=== PATIENT | male | born 1985 | race Caucasian/White ===

== ENCOUNTER 2022-10-12 14:10 | Outpatient (CLI) | payer OTHER, SELFPAY ==
[2022-10-12 20:42] LABS: Albumin* 4.4 g/dL (3.3-5.0); Chloride* 101 mmol/L (96-114); Potassium* 3.9 mmol/L (3.6-5.1); Sodium* 138 mmol/L (135-149)
[2022-10-12 20:44] LABS: Carbon Dioxide* 30 mmol/L (20-32); Cholesterol* 152 mg/dL (90-199); Creatinine* 1.1 mg/dL (0.5-1.5); Estimated Glomerular Filt Rate 89 ml/min
[2022-10-12 20:45] LABS: Alanine Aminotransferase* 38 U/L (4-50); Alkaline Phosphatase* 83 U/L (40-150); Aspartate Amino Transferase* 38 U/L (12-35); Blood Urea Nitrogen* 15 mg/dL (5-24); Calcium* 9.2 mg/dL (8.4-10.6); Glucose* 117 mg/dL (60-115); HDL Cholesterol* 41 mg/dL (>=40); LDL Cholesterol Calculated 91 mg/dL (<100); Triglycerides* 98 mg/dL (40-149)
[2022-10-15 00:32] LABS: Tissue Transglutaminase Ab,IgA <2 U/mL (0-3)
== END 2022-10-12 14:11 | disposition home or self-care (01) ==
PROVIDERS: PCP Family Medicine; Visit Provider Family Medicine
DX: K52.9 Noninfective gastroenteritis and colitis, unspecified (principal); R73.01 Impaired fasting glucose; Z13.6 Encounter for screening for cardiovascular disorders
CPT/HCPCS: 80053; 80061; 83516

== ENCOUNTER 2023-08-16 14:28 | Outpatient (CLI) | payer OTHER, SELFPAY | END 2023-08-16 14:29 | disposition home or self-care (01) | PROVIDERS: PCP Family Medicine; Visit Provider Family Medicine | DX: Z00.00 Encounter for general adult medical examination without abnormal findings (principal); R79.89 Other specified abnormal findings of blood chemistry; Z13.6 Encounter for screening for cardiovascular disorders | CPT/HCPCS: 80053; 80061 ==

== ENCOUNTER 2024-10-17 09:05 | Outpatient (CLI) | payer OTHER, SELFPAY | END 2024-10-17 09:06 | disposition home or self-care (01) | PROVIDERS: PCP Family Medicine; Visit Provider Family Medicine | DX: Z00.00 Encounter for general adult medical examination without abnormal findings (principal); E78.5 Hyperlipidemia, unspecified; R79.89 Other specified abnormal findings of blood chemistry; R53.83 Other fatigue | CPT/HCPCS: 80053; 80061; 84403 ==

== ENCOUNTER 2025-10-28 09:28 | Outpatient (CLI) | payer OTHER, SELFPAY | END 2025-10-28 09:29 | disposition home or self-care (01) | LOC: NFLDREF 11-01 06:31 | PROVIDERS: PCP Family Medicine; Referring Provider Family Medicine; Visit Provider Family Medicine | DX: Z00.00 Encounter for general adult medical examination without abnormal findings (principal); E78.5 Hyperlipidemia, unspecified | CPT/HCPCS: 80053; 80061 ==